=== PATIENT | female | born 1950 | race Caucasian/White ===

== ENCOUNTER 2017-03-23 13:54 | Outpatient (CLI) | payer MEDICARE ==
--- NOTE | 2017-03-23 15:47 | RAD ---
RIGHT SHOULDER THREE VIEWS: History: Right shoulder pain. FINDINGS: No evidence of fracture. No evidence of dislocation. AC joint normally aligned. IMPRESSION: No acute abnormality. POS: [facility]
== END 2017-03-23 13:55 | disposition home or self-care (01) ==
LOC: NAV RAD 13:54
PROVIDERS: ATTEND Family Medicine
DX: M25.511 Pain in right shoulder (principal)

== ENCOUNTER 2024-05-01 11:00 | Outpatient (CLI) | payer MEDICARE | END 2024-05-01 11:01 | disposition home or self-care (01) | LOC: NAV RAD 11:00 | PROVIDERS: ATTEND Nurse Practitioner Family | DX: M25.512 Pain in left shoulder (principal) ==

== ENCOUNTER 2025-05-19 11:59 | Emergency (ER) | payer MEDICARE ==
[2025-05-19] MEDS ORDERED: Dexamethasone 10 MG/ML VIAL ONE (12:15)
== END 2025-05-19 12:25 | disposition home or self-care (01) ==
LOC: NAV ERS 11:59
DX: L23.7 Allergic contact dermatitis due to plants, except food (principal); E03.9 Hypothyroidism, unspecified; Z79.899 Other long term (current) drug therapy
CPT/HCPCS: 96372; 99282; J1100